=== PATIENT | female | born 1995 | race Caucasian/White ===

== ENCOUNTER 2017-02-05 04:00 | Emergency (ER) | payer BC ==
[2017-02-05 04:07] VITALS: BP 122/64; BMI 30.1
--- NOTE | 2017-02-05 04:23 | DR.GENAD ---
HPI - PCP Primary Care Physician: JOON PIERRE - Complaint/Symptoms Chief Complaint:: RLQ PAIN, NAUSEA NO VOMITING, DIARRHEA SINCE MIDNIGHT TONIGHT. - Source History Provided: Patient - Mode of Arrival Mode of Arrival: Ambulatory - Timing Onset of Chief Complaint: 02/05/17 PMH - PMH Past Medical History: No Past Surgical History: Yes Surgical History: Tonsillectomy Past Surgical History Comment: URETHRA ENLARGED AT AGE OF 3 YRS OLD - Family History History of Family Medical Conditions: Yes Family Medical History: Diabetes Mellitus, Cancer - Social History Does patient currently use any type of tobacco product: No Have you used tobacco products in the last 12 months: No Type of Tobacco Use: None Does any household member use tobacco: No Alcohol Use: None Do you use any recreational Drugs:: No Lives With: Family Lives Where: Home - infectious screening Have you traveled outside the country in the last 6 months?: No Isolation: Standard ROS - Review of Systems Eyes: No Symptoms Reported ENTM: No Symptoms Reported Respiratoy: No Symptoms Reported Cardiovascular: No Symptoms Reported Gastrointestinal/Abdominal: No Symptoms Reported, Abdominal Pain Genitourinary: No Symptoms Reported Neurological: No Symptoms Reported Musculoskeletal: No Symptoms Reported Integumentary: No Symptoms Reported Hematologic/Lymphatic: No Symptoms Reported Endocrine: No Symptoms Reported, Increased Hunger PE - Vital Signs Vitals: Temperature 97.0 F Pulse Rate 57 Respiratory Rate 16 Blood Pressure 122/64 O2 Sat by Pulse Oximetry 98 - General Limitations: No Limitations General Appearance: Alert - Head Head Exam: Normal Inspection - Eyes Eye exam: Normal Appearance - ENT ENT Exam: Normal Exam External Ear Exam: Normal External Inspection TM/Canal Exam: Left Normal Nose Exam: Normal Nose Exam Mouth Exam: Normal Inspection Throat Exam: Normal Inspection - Neck Neck Exam: Normal Inspection, Full ROM - Chest Chest Inspection: Normal Inspection - Respiratory Respiratory Exam: Normal Lung Sounds Bilat Respiratory Exam: Bilateral Clear to Auscultation - Cardiovascular Cardiovascular Exam: Regular Rate - Abdominal Exam Abdominal Exam: Normal Inspection Abdominal Tenderness: negative: RUQ, RLQ, LUQ, LLQ, Epigastrium, Suprapubic, Diffuse, Mild, Moderate, Severe, Other - Extremities Extremities Exam: Normal Inspection - Back Back Exam: Normal Inspection - Neurologic Neurological Exam: Alert, CN II-XII Intact - Psychiatric Psychiatric Exam: Normal Affect - Skin Skin Exam: Warm, Dry Course - Reevaluation 1st: Improved - Education/Counseling Education/Counseling: Patient ROR - Labs Reviewed Laboratory Results Reviewed?: Yes (strep positive) Result Diagrams: 02/05/17 03:50 02/05/17 03:50 Laboratory: WBC 11.0 X10^3/uL (3.6-10.0) H 02/05/17 03:50 RBC 4.36 X10^6/uL (3.5-5.4) 02/05/17 03:50 Hgb 13.0 g/dL (12.0-16.0) 02/05/17 03:50 Hct 39.0 % (36.0-47.0) 02/05/17 03:50 MCV 89.3 fL (80.0-100.0) 02/05/17 03:50 MCH 29.9 pg (27.0-34.0) 02/05/17 03:50 MCHC 33.4 g/dL (33.0-35.0) 02/05/17 03:50 RDW 12.2 % (11.6-16.5) 02/05/17 03:50 Plt Count 242 X10^3/uL (150.0-450.0) 02/05/17 03:50 Plt Count Comment Adequate (ADEQUATE) 02/05/17 03:50 MPV 8.8 fL (7.4-11.0) 02/05/17 03:50 Neut % 61.6 % (42.0-75.0) 02/05/17 03:50 Lymph % 28.1 % (21.0-51.0) 02/05/17 03:50 Anson % 5.7 % (0.0-13.0) 02/05/17 03:50 Eos % 3.3 % (0.9-2.9) H 02/05/17 03:50 Baso % 1.3 % (0.2-1.0) H 02/05/17 03:50 Neut # 6.8 x10^3/uL (2.2-4.8) H 02/05/17 03:50 Lymph # 3.1 X10^3/uL (1.3-2.9) H 02/05/17 03:50 Anson # 0.6 x10^3/uL (0.3-0.8) 02/05/17 03:50 Eos # 0.4 x10^3/uL (0.0-0.2) H 02/05/17 03:50 Baso # 0.1 X10^3/uL (0.0-0.1) 02/05/17 03:50 Absolute Nucleated RBC 0.0 /100WBC 02/05/17 03:50 Total Counted 100 02/05/17 03:50 Neutrophils % (Manual) 72 % (39-76) 02/05/17 03:50 Band Neutrophils % 3 % (0-10) 02/05/17 03:50 Lymphocytes % (Manual) 23 % (13-43) 02/05/17 03:50 Monocytes % (Manual) 2 % (4-9) L 02/05/17 03:50 Plt Morphology Comment Normal (NORMAL) 02/05/17 03:50 RBC Morphology Normal (NORMAL) 02/05/17 03:50 Sodium 143 mmol/L (136-145) 02/05/17 03:50 Corrected Sodium TNP 02/05/17 03:50 Potassium 4.4 mmol/L (3.5-5.1) 02/05/17 03:50 Chloride 106 mmol/L (98-107) 02/05/17 03:50 Carbon Dioxide 28.7 mmol/L (21-32) 02/05/17 03:50 BUN 12 mg/dL (7-18) 02/05/17 03:50 Creatinine 0.78 mg/dL (0.55-1.02) 02/05/17 03:50 Est GFR (MDRD) Af Amer > 60 (>60) 02/05/17 03:50 Est GFR (MDRD) Non-Af > 60 (>60) 02/05/17 03:50 Glucose 101 mg/dL (65-99) H 02/05/17 03:50 Calcium 8.9 mg/dL (8.5-10.1) 02/05/17 03:50 Streptococcus Screen Positive (NEGATIVE) A 02/05/17 04:23 - XRAY XRAY Interpreted by: Radiologist (Abd/Pelv: The lung bases are clear. The liver , spleen,pancreas adrenal glands, left kidney and gallbladder are normal. There is a l mm stone in the distal right ureter at the UVJ causing mild right hydronephrosis and hydroureter. There is no evidence of biliary ductal dilation. The aorta and inferior vena cava are normal in caliber. The bowel loops are nonobstructed. No abbirnak nassmlymphadenopathy or fluid collection. Urinary bladder is normal. The appendix is normal. The uterus and adnexa appear unremarkable.:Impression: There iws a lmm stone in the right UVJ causing mild right hydronephrosis and hydroureter.) - Diagnosis Discharge Problem: Hydronephrosis of right kidney, Hydroureter, right, Strep throat - Discharge Plan Condition: Stable - Follow ups/Referrals Follow ups/Referrals: ELI CARDENAS [Primary Care Provider] - 3 days - Instructions
[2017-02-05] MEDS ORDERED: NS 1000 ML 1,000 ML IV ONE (04:24)
[2017-02-05] MEDS ORDERED: NS 1000 ML 1,000 ML ONE (04:27)
[2017-02-05 04:37] LABS: BLOOD UREA NITROGEN 12 mg/dL (7-18); CALCIUM 8.9 mg/dL (8.5-10.1); CARBON DIOXIDE 28.7 mmol/L (21-32); CHLORIDE 106 mmol/L (98-107); CREATININE 0.78 mg/dL (0.55-1.02); GLUCOSE 101 mg/dL (65-99); SODIUM 143 mmol/L (136-145); eGFR BLACK RACES > 60 (>60); eGFR NON BLACK RACES > 60 (>60)
[2017-02-05 04:38] LABS: BASOPHILS # (AUTO) 0.1 X10^3/uL (0.0-0.1); BASOPHILS % (AUTO) 1.3 % (0.2-1.0); EOSINOPHILS # (AUTO) 0.4 x10^3/uL (0.0-0.2); EOSINOPHILS % (AUTO) 3.3 % (0.9-2.9); LYMPHOCYTES # (AUTO) 3.1 X10^3/uL (1.3-2.9); LYMPHOCYTES % (AUTO) 28.1 % (21.0-51.0); MEAN CORPUSCULAR HEMOGLOBIN 29.9 pg (27.0-34.0); MEAN CORPUSCULAR HGB CONC 33.4 g/dL (33.0-35.0); MEAN CORPUSCULAR VOLUME 89.3 fL (80.0-100.0); MEAN PLATELET VOLUME 8.8 fL (7.4-11.0); MONOCYTES # (AUTO) 0.6 x10^3/uL (0.3-0.8); MONOCYTES % (AUTO) 5.7 % (0.0-13.0); NEUTROPHILS # (AUTO) 6.8 x10^3/uL (2.2-4.8); NEUTROPHILS % (AUTO) 61.6 % (42.0-75.0); PLATELET COUNT 242 X10^3/uL (150.0-450.0); RED BLOOD COUNT 4.36 X10^6/uL (3.5-5.4); RED CELL DISTRIBUTION WIDTH 12.2 % (11.6-16.5)
[2017-02-05 04:42] LABS: BAND NEUTROPHILS % 3 % (0-10); PLATELET MORPHOLOGY COMMENT NORMAL (NORMAL)
[2017-02-05 05:03] LABS: BILIRUBIN,URINE NEGATIVE (NEGATIVE); BLOOD/HEMOGLOBIN,URINE 5+ (NEGATIVE); GLUCOSE, URINE NEGATIVE (NEGATIVE); KETONES,URINE NEGATIVE (NEGATIVE); LEUKOCYTE ESTERASE ,URINE NEGATIVE (NEGATIVE); NITRITES,URINE NEGATIVE (NEGATIVE); PROTEIN,URINE 1+ (NEGATIVE); UROBILINOGEN,URINE NORMAL (NORMAL)
[2017-02-05 05:14] LABS: APPEARANCE,URINE SLIGHTLY HAZY (CLEAR); COLOR,URINE YELLOW (YELLOW)
[2017-02-05 05:15] LABS: BACTERIA,URINE NEGATIVE /HPF (NEGATIVE); MUCUS,URINE FEW /HPF (NEGATIVE); RBC,URINE 40-50 /HPF (NEGATIVE); SQUAMOUS EPITHELIAL CELL,UR RARE /HPF (NEGATIVE)
--- NOTE | 2017-02-05 05:40 | CT ---
EXAM: CT ABDOMEN AND PELVIS WITHOUT CONTRAST INDICATION: Right flank pain COMPARISION: No priors available for comparison TECHNIQUE: Axial CT examination of the abdomen and pelvis was performed without intravenous contrast. Coronal a nd sagittal reconstructions were created using the axial data. FINDINGS: The lung bases are clear. The liver, spleen, pancreas, adrenal glands, left kidney, and gallbladder are normal. There is a 1 mm stone in the distal right ureter at the UVJ causing mild right hydroneph rosis and hydroureter. There is no evidence of biliary ductal dilatation. The aorta and inferior michell a cava are normal in caliber. The bowel loops are nonobstructed. No abnormal mass, lymphadenopathy, or fluid collection. Urinary bladder is normal. The appendix is normal. The uterus and adnexa appear unremarkable. The regional skeleton is intact. IMPRESSION: There is a 1 mm stone in the right UVJ causing mild right hydronephrosis and hydroureter. Reported By:
[2017-02-05] MEDS ORDERED: TORADOL 30 MG VIAL IVP ONE (05:58)
[2017-02-05] MEDS ORDERED: TORADOL 30 MG VIAL ONE (05:59)
[2017-02-05] MEDS ORDERED: AMOXIL CAP 500 MG PO SCH (09:00)
== END 2017-02-05 07:54 | disposition home or self-care (01) ==
LOC: ER 04:00
DX: N13.39 Other hydronephrosis (principal); N13.4 Hydroureter; J02.0 Streptococcal pharyngitis; R10.31 Right lower quadrant pain
CPT/HCPCS: 36415; 74176; 80048; 81001; 85025; 87880; 96365; 96374; 99283; A4222; J1885

== ENCOUNTER → 2017-03-08 | Outpatient (CLI) | payer BC ==
--- NOTE | 2017-03-08 13:41 | US ---
Renal Sonogram Indication: Followup right-sided hydroureteronephrosis Technique: Multiple holloway scale and Doppler images of the right and left kidneys and bladder were obt ained Findings: The right kidney measures 10.0 cm. The left kidney measures 9.0 cm. Neither kidney demonstrates evidence of nephrolithiasis, solid mass or hydronephrosis. Renal cortica l echogenicity and cortical thickness are normal. Urinary bladder is unremarkable. IMPRESSION: Unremarkable evaluation of the kidneys and bladder. Reported By:
== END | disposition home or self-care (01) ==
LOC: RAD 13:00
PROVIDERS: ATTEND Specialist
DX: N13.39 Other hydronephrosis (principal)
CPT/HCPCS: 76770

== ENCOUNTER → 2017-09-06 | Outpatient (CLI) | payer BC ==
--- NOTE | 2017-09-06 14:24 | US ---
Examination: Abdominal ultrasound. Clinical History: Right upper quadrant discomfort, nausea, bloating, dyspepsia. Technique: Real-time grayscale ultrasound was used to evaluate the upper abdomen. Comparison: None available. Findings: The gallbladder is normal in appearance with no cholelithiasis, gallbladder wall thickening or perich olecystic fluid noted. The common bile duct measures 4 mm in diameter and is within normal limits. No intrahepatic biliary d uctal dilatation is noted. The liver is normal in echogenicity with no focal mass. The pancreas is suboptimally visualized, with no definite abnormality noted. The right kidney measures 11.6 cm in length and is normal in echogenicity with no focal mass, hydrone phrosis or nephrolithiasis noted. Impression: 1. Negative right upper quadrant abdominal ultrasound. Reported By:
== END ==
LOC: RAD 09:41
PROVIDERS: ATTEND Nurse Practitioner Family
DX: R10.11 Right upper quadrant pain (principal)
CPT/HCPCS: 76705

== ENCOUNTER → 2017-09-27 | Outpatient (CLI) | payer BC ==
--- NOTE | 2017-09-27 11:40 | NM ---
HISTORY: Right upper quadrant, mid abdominal pain. Nausea. Steatorrhea. Study: Nuclear medicine HIDA scan with ejection fraction Comparison: Gallbladder ultrasound 09/06/2017 Technique: Multiple scintigraphic images of the abdomen were obtained the intravenous administration of 5.3 mCi of technetium labeled Choletec. Following distention of the gallbladder with radiotracer, the patient drank 8 oz of Ensure Plus. An estimated gallbladder ejection fraction was calculated based on the physiologic response of this santosh stion. Findings: Homogeneous uptake of radiotracer is seen throughout the liver. This intrabiliary ductal system is o bserved normally. The common hepatic and common bile duct grossly appear unremarkable with normal bi liary-bowel transit. The gallbladder is observed to fill normally. After the patient drank Ensure, a gallbladder ejection fraction of 13% (normal > 35%) is observed. IMPRESSION: 1. Normal hepatobiliary imaging scan. 2. Findings of biliary dyskinesia, with a gallbladder ejection fraction of 13%. Reported By:
== END ==
LOC: RAD 07:34
PROVIDERS: ATTEND Psychiatry & Neurology Neurology
DX: R10.11 Right upper quadrant pain (principal)
CPT/HCPCS: 78227; A9537

== ENCOUNTER → 2017-10-04 | Outpatient (CLI) | payer BC ==
[2017-10-04 10:31] LABS: BASOPHILS # (AUTO) 0.1 X10^3/uL (0.0-0.1); BASOPHILS % (AUTO) 0.8 % (0.2-1.0); EOSINOPHILS # (AUTO) 1.1 x10^3/uL (0.0-0.2); EOSINOPHILS % (AUTO) 13.3 % (0.9-2.9); HEMATOCRIT 39.3 % (36.0-47.0); HEMOGLOBIN 13.5 g/dL (12.0-16.0); LYMPHOCYTES % (AUTO) 36.1 % (21.0-51.0); MEAN CORPUSCULAR HEMOGLOBIN 30.2 pg (27.0-34.0); MEAN CORPUSCULAR HGB CONC 34.4 g/dL (33.0-35.0); MEAN CORPUSCULAR VOLUME 87.9 fL (80.0-100.0); MEAN PLATELET VOLUME 9.2 fL (7.4-11.0); MONOCYTES # (AUTO) 0.5 x10^3/uL (0.3-0.8); MONOCYTES % (AUTO) 5.7 % (0.0-13.0); NEUTROPHILS # (AUTO) 3.6 x10^3/uL (2.2-4.8); NEUTROPHILS % (AUTO) 44.1 % (42.0-75.0); PLATELET COUNT 289 X10^3/uL (150.0-450.0); RED BLOOD COUNT 4.47 X10^6/uL (3.5-5.4); WHITE BLOOD COUNT 8.3 X10^3/uL (3.6-10.0)
[2017-10-04 10:46] LABS: BILIRUBIN,URINE NEGATIVE (NEGATIVE); BLOOD/HEMOGLOBIN,URINE 3+ (NEGATIVE); GLUCOSE, URINE NEGATIVE (NEGATIVE); KETONES,URINE NEGATIVE (NEGATIVE); LEUKOCYTE ESTERASE ,URINE 1+ (NEGATIVE); NITRITES,URINE NEGATIVE (NEGATIVE); PROTEIN,URINE NEGATIVE (NEGATIVE); UROBILINOGEN,URINE NORMAL (NORMAL)
[2017-10-04 10:54] LABS: ALANINE AMINOTRANSFERASE 20 Units/L (12-78); ALBUMIN 3.8 g/dL (3.4-5.0); ALKALINE PHOSPHATASE 66 Units/L (46-116); ASPARTATE AMINO TRANSFERASE 17 Units/L (15-37); BLOOD UREA NITROGEN 10 mg/dL (7-18); CALCIUM 9.4 mg/dL (8.5-10.1); CARBON DIOXIDE 28.6 mmol/L (21-32); CHLORIDE 103 mmol/L (98-107); CREATININE 0.78 mg/dL (0.55-1.02); SODIUM 139 mmol/L (136-145); TOTAL PROTEIN 7.8 g/dL (6.4-8.2); eGFR BLACK RACES > 60 (>60); eGFR NON BLACK RACES > 60 (>60)
[2017-10-04 11:03] LABS: SERUM PREGNANCY TEST, QUAL NEGATIVE <10 mIU/mL
[2017-10-04 11:30] LABS: APPEARANCE,URINE CLEAR (CLEAR); COLOR,URINE YELLOW (YELLOW); RBC,URINE 0 - 3 /HPF (NEGATIVE); SQUAMOUS EPITHELIAL CELL,UR FEW /HPF (NEGATIVE)
[2017-10-04 11:31] LABS: AMORPHOUS SEDIMENT,UR 1+ /HPF (NEGATIVE); BACTERIA,URINE TRACE /HPF (NEGATIVE)
== END | disposition home or self-care (01) | DRG 951 ==
LOC: LAB 09:59
PROVIDERS: ATTEND Surgery
DX: Z01.818 Encounter for other preprocedural examination (principal); Z01.812 Encounter for preprocedural laboratory examination; K81.9 Cholecystitis, unspecified; K82.8 Other specified diseases of gallbladder
CPT/HCPCS: 36415; 80053; 81001; 84703; 85025

== ENCOUNTER 2017-10-11 06:21 | Day surgery (SDC) | payer BC ==
[2017-10-11 06:34] VITALS: BMI 30.8
[2017-10-11] MEDS ORDERED: DEMEROL INJ IVP ONE (06:44)
[2017-10-11] MEDS ORDERED: ZOFRAN INJ 4 MG VIAL IVP ONE (06:44)
[2017-10-11] MEDS ORDERED: NS 1000 ML 1,000 ML IV ONE (06:44)
--- NOTE | 2017-10-11 06:45 | DR.GENAD ---
HPI - PCP Primary Care Physician: GREG - Complaint/Symptoms Chief Complaint:: PT STATES" I HAD A HIDA SCAN DONE ON THE I KNOW MY GALLBLADDER IS NOT WORKING RIGHT BUT I DIDN'T WANT TO HAVE SURGERY UNTIL I COULDN'T STAND THE PAIN ANYMORE. I CAN'T STAND IT I'M HURTING AND SO SICK" - Source History Provided: Patient - Mode of Arrival Mode of Arrival: Ambulatory - Timing Onset of Chief Complaint: 10/11/17 PMH - PMH Past Medical History: No Past Surgical History: Yes Surgical History: Tonsillectomy - Family History History of Family Medical Conditions: Yes Family Medical History: Diabetes Mellitus, Cancer - Social History Type of Tobacco Use: None Does any household member use tobacco: No Alcohol Use: None Do you use any recreational Drugs:: No Lives With: Family Lives Where: Home - infectious screening In the last 2 months have you had wt loss of >10#?: NO Have you had fever, night sweats or hemotysis?: No Have you traveled outside the country in the last 6 months?: No Isolation: Standard PE - Vital Signs Vitals: Temperature 97.4 F Pulse Rate 64 Respiratory Rate 18 Blood Pressure 124/74 O2 Sat by Pulse Oximetry 98 - Discharge Plan Condition: Stable - Follow ups/Referrals Follow ups/Referrals: BIMAL GARZA [Primary Care Provider] - 3 days - Instructions
[2017-10-11] MEDS ORDERED: ZOFRAN INJ 4 MG VIAL ONE ×2 (06:46→09:11)
[2017-10-11] MEDS ORDERED: NS 1000 ML 1,000 ML ONE ×2 (06:46→07:45)
[2017-10-11] MEDS ORDERED: DEMEROL INJ ONE (06:47)
[2017-10-11 07:05] LABS: BASOPHILS # (AUTO) 0.2 X10^3/uL (0.0-0.1); BASOPHILS % (AUTO) 2.8 % (0.2-1.0); EOSINOPHILS % (AUTO) 12.3 % (0.9-2.9); HEMATOCRIT 36.9 % (36.0-47.0); HEMOGLOBIN 12.8 g/dL (12.0-16.0); LYMPHOCYTES # (AUTO) 2.5 X10^3/uL (1.3-2.9); LYMPHOCYTES % (AUTO) 30.4 % (21.0-51.0); MEAN CORPUSCULAR HEMOGLOBIN 30.3 pg (27.0-34.0); MEAN CORPUSCULAR HGB CONC 34.6 g/dL (33.0-35.0); MEAN CORPUSCULAR VOLUME 87.5 fL (80.0-100.0); MEAN PLATELET VOLUME 8.9 fL (7.4-11.0); MONOCYTES # (AUTO) 0.5 x10^3/uL (0.3-0.8); NEUTROPHILS # (AUTO) 4.1 x10^3/uL (2.2-4.8); NEUTROPHILS % (AUTO) 48.5 % (42.0-75.0); PLATELET COUNT 228 X10^3/uL (150.0-450.0); RED BLOOD COUNT 4.22 X10^6/uL (3.5-5.4); WHITE BLOOD COUNT 8.3 X10^3/uL (3.6-10.0)
[2017-10-11 07:11] LABS: SERUM PREGNANCY TEST, QUAL NEGATIVE <10 mIU/mL
[2017-10-11 07:13] LABS: ALANINE AMINOTRANSFERASE 15 Units/L (12-78); ALBUMIN 3.4 g/dL (3.4-5.0); ALKALINE PHOSPHATASE 60 Units/L (46-116); AMYLASE 49 Units/L (25-115); ASPARTATE AMINO TRANSFERASE 12 Units/L (15-37); BLOOD UREA NITROGEN 8 mg/dL (7-18); CALCIUM 8.9 mg/dL (8.5-10.1); CARBON DIOXIDE 28.1 mmol/L (21-32); CHLORIDE 104 mmol/L (98-107); CREATININE 0.68 mg/dL (0.55-1.02); LIPASE 79 Units/L (73-393); SODIUM 138 mmol/L (136-145); eGFR BLACK RACES > 60 (>60); eGFR NON BLACK RACES > 60 (>60)
[2017-10-11] MEDS ORDERED: ANCEF VIAL 1 GM ONE (07:45)
[2017-10-11] MEDS ORDERED: NS 100 ML IV 100 ML IV ONE (07:45)
[2017-10-11] MEDS ORDERED: DILAUDID INJ IVP PRN ×3 (07:55→10:21)
[2017-10-11] MEDS ORDERED: PHENERGAN INJ 25 MG IVP PRN ×3 (07:55→10:02)
[2017-10-11] MEDS ORDERED: ZOFRAN INJ 4 MG VIAL IVP PRN ×4 (07:57→10:21)
[2017-10-11] MEDS ORDERED: ANCEF VIAL 1 GM 1 GM in NS 100 ML IV 100 ML IV SCH ×2 (08:00→09:00)
[2017-10-11] MEDS ORDERED: FENTANYL INJ 250 mcg ONE (08:44)
[2017-10-11] MEDS ORDERED: SUPRANE IN ONE (09:11)
[2017-10-11] MEDS ORDERED: ROBINUL ONE (09:11)
[2017-10-11] MEDS ORDERED: XYLOCAINE 2 % (PLAIN) ONE (09:11)
[2017-10-11] MEDS ORDERED: NORCURON INJ 10 MG VIAL ONE (09:11)
[2017-10-11] MEDS ORDERED: NEOSTIGMINE INJ ONE (09:11)
[2017-10-11] MEDS ORDERED: LTA KIT LIDOCAINE 4% ONE (09:11)
[2017-10-11] MEDS ORDERED: QUELICIN (OR ANECTINE) ONE (09:11)
[2017-10-11] MEDS ORDERED: DIPRIVAN VIAL ONE (09:11)
[2017-10-11] MEDS ORDERED: VERSED ONE (09:11)
[2017-10-11] MEDS ORDERED: NS IRRIGATION 1000 ML 1,000 ML IR ONE (09:17)
[2017-10-11] MEDS ORDERED: FENTANYL INJ 100 mcg ONE (09:23)
[2017-10-11] MEDS: DILAUDID INJ IVP PRN ×4 (09:57→10:15)
[2017-10-11] MEDS ORDERED: BENADRYL INJ 50 MG VIAL IVP PRN (10:02)
[2017-10-11] MEDS ORDERED: REGLAN INJ 10 MG VIAL IVP PRN (10:02)
--- NOTE | 2017-10-11 10:18 | OR.GENERIC ---
Post-Op Note Generic - Post-Op Note Operative Report: po diagnostic laparoscopy and Lap Myra . finding large distended GB with small cystic duct and moderate wall inflamation. pelvic contents , appendix and terminal ileum are normal .. will observe . IV ATB and clear liquid ..
[2017-10-11] MEDS ORDERED: NORCO 5/325 MG TAB PO PRN (10:21)
[2017-10-11] MEDS ORDERED: D5 1/2 NS 1000 ML 1,000 ML IV SCH (11:00)
[2017-10-11 17:15] VITALS: BP 128/68
== END 2017-10-11 17:00 | disposition home or self-care (01) ==
LOC: ER 06:21 → SURG1 08:31 → OBS 10:18 → SURG1 17:00
PROVIDERS: ATTEND Surgery
PROC: 0FT44ZZ Resection of Gallbladder, Percutaneous Endoscopic Approach (ICD-10-PCS; principal; 2017-10-11 08:30)
DX: K82.8 Other specified diseases of gallbladder (principal); K81.1 Chronic cholecystitis
CPT/HCPCS: 36415; 80053; 82150; 83690; 84703; 85025; 96365; 96374; 96375; 99282; 99284; A4216; A4222; A4217; J0330; J0690; J1170; J2001; J2175; J2250; J2405; J2550; J2710; J3010; J3490